=== PATIENT | male | born 2000 | race Caucasian/White ===

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

== ENCOUNTER 2021-09-20 15:33 | Emergency (ER) | payer OTHER, SELFPAY ==
[2021-09-20 15:36] VITALS: BP 153/79; PULSE 118; RESP 18; TEMP 37; O2SAT 97; BMI 40.1
--- NOTE | 2021-09-20 16:43 | ED_ITS ---
HPI - General Adult General Chief complaint: Skin/Abscess/Foreign Body Stated complaint: L Arm Side Pain No Injury Time Seen by Provider: 09/20/21 16:43 Source: patient and family (mother) Mode of arrival: ambulatory Limitations: no limitations History of Present Illness HPI narrative: Patient is a 20 year old male presenting to the emergency department today with a left armpit abscess. Patient states that for the last month and a half, he has had this growth in his left armpit. Patient states that the other day, the bump broke open. Patient denies any dizziness, lightheadedness, abdominal pain, n ausea, vomiting, fever, chills, blurry vision, double vision, loss of vision, chest pain, difficulty breathing, shortness of breath, back pain, night sweats, pain with urination, increased urinary frequency, increased urinary urgency, blood in his urine or stool, syncope or a near syncopal episode, recent trauma or falls, bowel incontinence, bladder incontinence, bowel retention, bladder retention, or any other complaints at this time. Onset (ago): month(s) (1) Location: left (armpit) Radiation: non-radiation Severity: mild Severity scale (1-10): 2 Quality: dull Pain Consistency: constant Relieving factors: none Exacerbating factors: none Associated symptoms: denies other symptoms Treatments prior to arrival: none Related Data Previous Rx's Medication Instructions Recorded cephalexin 500 mg capsule 500 mg PO Q6H 7 days #28 caps 09/20/21 Allergies Allergy/AdvReac Type Severity Reaction Status Date / Time morphine [MORPHINE] Allergy Intermediate RASH AND Unverified 12/27/19 17:22 ABD PAIN Review of Systems Constitutional: Constitutional: Reports no additional constitutional complaints, Denies chills, Denies fever(s) and Denies night sweats Eyes: Eyes: Reports no additional eye complaints, Denies blurry vision, Denies change in vision, Denies diplopia, Denies eye discharge, Denies loss of vision and Denies eye pain ENT: Denies dizziness Cardiovascular: Cardiovascular: Reports no additional cardiovascular complaints, Denies chest pain, Denies lightheadedness, Denies Loss of Consciousness and Denies dyspnea Respiratory: Respiratory: Reports no additional respiratory complaints and Denies dyspnea Gastrointestinal: Gastrointestinal: Reports no additional gastrointestinal complaints, Denies abdominal pain, Denies melena, Denies hematochezia, Denies change in bowel habits and Denies change in stool character Genitourinary: Genitourinary: Reports no additional male genitourinary complaints, Denies hematuria, Denies oliguria, Denies difficulty urinating, Denies dysuria, Denies urinary frequency, Denies urinary hesitancy, Denies urinary incontinence and Denies urinary urgency Musculoskeletal: Musculoskeletal: Reports no additional musculoskeletal c omplaints, Denies numbness and Denies tingling Integumentary/Breasts: Comments: left armpit abscess Neurologic: Denies dizziness, Denies loss of vision, Denies numbness and Denies tingling Psychiatric: Psychiatric: Reports no additional psychiatric complaints Endocrine: Endocrine: Reports no additional endocrine complaints Hematologic/Lymphatic: Hematologic/Lymphatic: Reports no additional hematologic/lymphatic complaints Allergic/Immunologic: Allergic/Immunologic: Reports no additional allergic/immunologic complaints [facility] Past Medical History Attestation statement: The following information was validated with the patient. Source: old records reviewed Social History Social History Advance Directives: No Advance Directives Information Provided: No Physical Exam ED Vital Signs: Vital Signs - 24 hr 09/20/21 15:36 Temperature 98.6 F Pulse Rate 118 H Respiratory Rate 18 Blood Pressure 153/79 H Pulse Oximetry 97 Oxygen Delivery Method Room Air BMI result Body Mass Index 40.1 Const General: cooperative, no acute distress, alert and awake Nutritional Appearance: well nourished Orientation/consciousness: patient oriented x3 Limitations: no limitations [facility] Head: Yes normal to inspection and Yes atraumatic Ears: hearing grossly normal bilaterally and external ears normal General nose exam: Normal external nose present, no nasal discharge noted and no epistaxis Face and sinus: Yes normal facial exam, No abrasion and No laceration Mouth: Normal oral and palatal mucosa present, no drooling and no muffled voice Eyes General: appearance normal, both eyes and all related structures Periorbital: periorbital findings normal Eyelids: Yes eyelids normal Conjunctivae: conjunctivae normal Pupils: Equal, round and reactive pupils present EOM: EOMs intact bilaterally Neck Neck: Yes normal visual inspection, Yes full ROM and Yes no lymphadenopathy Chest Chest palpation & inspection: normal inspection of the chest Resp Effort & Inspection: normal respiratory effort and able to speak in complete sentences Auscultation: clear to auscultation bilaterally Cardio Rate: regular rate Rhythm: regular rhythm GI Inspection: Yes normal to inspection Skin Other: abscess in the left axilla, draining Neuro General: patient oriented x3 and moves all extremities Cranial nerves: Yes Equal, round and reactive pupils present Cognition (Neuro): normal cognition Motor exam (neuro): 5/5 motor strength present throughout Sensory Exam: Normal double simultaneous stimulation for sensation Coordination: [id number] test normal Extrem General: Yes normal to inspection, Yes full ROM and Yes capillary refill normal Psych Appearance: grossly normal Mental Status: mental status grossly normal Affect: normal affect Attitude: cooperative Thought process: Normal thought process present Thought content: Normal thought content present Insight: Good insight present (Psych) Medical Decision Making MDM Narrative Medical decision making narrative: Patient is a 20 year old male presenting to the emergency department today with a left axillary abscess. Patient's physical exam showed a small abscess in the patient's left axilla that was already unroofed and actively draining. I explained my physical exam findings to the patient and the patient's mother. I answered all questions asked by the patient and the patient's mother. I stressed the importance of the patient taking his medication as prescribed. I stressed the importance of the patient following up with his primary care provider and a general surgeon. I stressed the importance of the patient returning to the emergency department immediately if his symptoms were to worsen or if he were to develop any dizziness, shortness of breath, difficulty breathing, chest pain, blurry vision, loss of vision, nausea, vomiting, abdominal pain, fever, chills, back pain, or any other complaints. Patient and the patient's mother verbalized agreement and understanding with this treatment plan and discharge. Differential Diagnosis Differential Diagnosis: abscess, cyst Medical Records Medical records reviewed: Yes I reviewed the patient's medical records. Discharge Plan Discharge Clinical Impression: Abscess of skin or subcutaneous tissue Patient Disposition: Home, Self-Care Instructions: Abscess (ED) Additional Instructions: Follow up with your primary care provider and a general surgeon. Return to the emergency department immediately if your symptoms worsen or if you develop any dizziness, shortness of breath, difficulty breathing, chest pain, blurry vision, loss of vision, nausea, vomiting, abdominal pain, fever, chills, back pain, or any other complaints. Prescriptions: New cephalexin 500 mg capsule 500 mg PO Q6H 7 Days Qty: 28 0RF Referrals: Ranjeet Ortega MD [Primary Care Provider] - Jarrett Cruz MD [Physician] - Print Language: Taiwanese
== END 2021-09-20 17:19 | disposition home or self-care (01) ==
PROVIDERS: Emergency Provider Emergency Medicine; PCP Pediatrics
DX: L02.412 Cutaneous abscess of left axilla (principal)
CPT/HCPCS: 99283

== ENCOUNTER → 2022-04-09 10:46 | Outpatient (BNVA) | payer OTHER, SELFPAY | PROVIDERS: PCP Pediatrics; Visit Provider Physician Assistant Surgical | DX: Z13.89 Encounter for screening for other disorder (principal) ==

== ENCOUNTER → 2022-04-19 08:33 | Outpatient (BNVA) | payer OTHER, SELFPAY | PROVIDERS: PCP Pediatrics; Visit Provider Surgery | DX: Z13.89 Encounter for screening for other disorder (principal) ==

== ENCOUNTER 2022-04-20 13:59 | Outpatient (REF) | payer OTHER, SELFPAY ==
--- NOTE | ~2022-04-20 | XR_ITS ---
EXAMINATION: XR CHEST CLINICAL INFORMATION: Bariatric service evaluation. E66.01 COMPARISON: Chest radiographs 02/09/2007, CT abdomen 03/15/2017 TECHNIQUE: 2 views of the chest were obtained. FINDINGS: Lungs clear. Vascularity normal. Costophrenic sulci are clear. Heart size normal. Hilar and mediastinal contours are unremarkable. Borderline levocurvature thoracolumbar spine. XR/XR chest 2V IMPRESSION: Lungs clear.
--- NOTE | 2022-04-20 14:09 | ECG_ITS ---
Test Reason : OBESITY Blood Pressure : / mmHG Vent. Rate : 080 BPM Atrial Rate : 080 BPM P-R Int : 096 ms QRS Dur : 086 ms QT Int : 364 ms P-R-T Axes : 058 008 -07 degrees QTc Int : 419 ms Sinus rhythm with short NE Minimal voltage criteria for LVH, may be normal variant ( R in aVL Borderline ECG When compared to the previous EKG of No significant changes seen Referred By: Kali Lemus Electronically Signed By:Checo Fall
[2022-04-20 14:15] LABS: MANUAL DIFF FLAG NO
[2022-04-20 15:14] LABS: Basophils Absolute Auto 0.1 X10*3/uL (0.0-0.2); Basophils Percent Auto 0.5 % (0-2); Eosinophils Absolute Auto 0.1 X10*3/uL (0.0-0.4); Hematocrit 44.5 % (42.0-52.0); Imm Gran Abs Auto 0.03 X10*3/uL (0.00-0.03); Imm Gran Pct Auto 0.3 % (0.0-0.4); Lymphocytes Absolute Auto 1.8 X10*3/uL (1.2-4.9); Lymphocytes Percent Auto 17.6 % (20-40); Mean Corpuscular HGB Conc 33.7 g/dl (31.0-36.0); Mean Corpuscular Hemoglobin 27.7 pg (27.0-33.0); Mean Corpuscular Volume 82.1 fL (80.0-98.0); Mean Platelet Volume 10.5 fL (9.4-12.4); Monocytes Absolute Auto 0.7 X10*3/uL (0.1-1.2); Monocytes Percent Auto 6.4 % (2-11); Neutrophils Absolute Auto 7.7 x10*3/uL (2.0-8.3); Neutrophils Percent Auto 74.2 % (45-73); Platelet Count 318 X10*3/uL (160-400); Red Blood Count 5.42 X10*6/uL (4.60-5.80); Red Cell Distribution Width 13.2 % (11.0-16.0); White Blood Count 10.3 X10*3/uL (4.8-10.8)
[2022-04-20 15:32] LABS: Estimated Average Glucose 105 mg/dL; Hemoglobin A1c % 5.3 %
[2022-04-20 16:26] LABS: Alanine Aminotransferase 22 U/L (0-40); Albumin Level 4.8 g/dL (3.5-5.0); Alkaline Phosphatase 97 U/L (39-117); Anion Gap 18 (12-20); Aspartate Amino Transferase 22 U/L (5-37); Bilirubin Total 0.9 mg/dL (0.0-1.0); Blood Urea Nitrogen 12 mg/dL (9-16); Calcium 10.1 mg/dL (8.4-10.2); Carbon Dioxide 23 mmol/L (22-29); Chloride 102 mmol/L (96-108); Cholesterol 127 mg/dL; Estimated Glomerular Filt Rate > 60; Glucose Random 73 mg/dL (60-115); HDL Cholesterol 19 mg/dL; Iron 98 mcg/dL (45-160); LDL Cholesterol Calculated 97 mg/dl; Percent Iron Saturation 28 % (15-50); Potassium 4.4 mmol/L (3.3-5.1); Sodium 139 mmol/L (135-145); Total Iron Binding Capacity 345 mcg/dL (228-428); Triglycerides 59 mg/dL; Unsaturated Iron Binding 247 ug/dL
[2022-04-20 16:49] LABS: Ferritin 201 ng/mL (20-250); Insulin 11 uU/mL (2-29); TSH reflex Free T4 0.58 uIU/mL (0.32-4.0); Vitamin D 25-OH Total 8.2 ng/mL (>30)
[2022-04-20 17:00] LABS: Folate 14.5 ng/mL (> or = 4.0); Vitamin B12 880 pg/mL (200-900)
[2022-04-21 10:48] LABS: Calcium (PTHI) 9.5 mg/dL (8.6-10.3); PTHI 28 pg/mL (16-77)
[2022-04-23 17:43] LABS: Zinc 91 mcg/dL (60-130)
[2022-04-25 16:13] LABS: Vitamin A 19 mcg/dL (38-98)
[2022-04-26 07:19] LABS: Vitamin B1 6 nmol/L (8-30)
== END 2022-04-20 14:00 | disposition home or self-care (01) ==
LOC: HO.XRAY 13:59
PROVIDERS: PCP Pediatrics; Visit Provider Surgery
DX: E66.01 Morbid (severe) obesity due to excess calories (principal)
CPT/HCPCS: 36415; 71046; 80053; 80061; 82306; 82607; 82728; 82746; 83036; 83525; 83540; 83970; 84425; 84443; 84590; 84630; 85025; 86140; 93005

== ENCOUNTER → 2022-04-29 14:31 | Outpatient (BNVA) | payer OTHER, SELFPAY | PROVIDERS: PCP Pediatrics; Visit Provider Physician Assistant Surgical | DX: Z13.89 Encounter for screening for other disorder (principal) ==

== ENCOUNTER 2022-04-29 15:34 | Outpatient (REF) | payer OTHER, SELFPAY ==
[2022-05-02 14:07] LABS: H Pylori Breath Test Negative (Negative)
== END 2022-04-29 15:35 | disposition home or self-care (01) ==
LOC: HO.LNP 15:34
PROVIDERS: Visit Provider Surgery
DX: E66.01 Morbid (severe) obesity due to excess calories (principal); Z11.0 Encounter for screening for intestinal infectious diseases
CPT/HCPCS: 83013

== ENCOUNTER → 2022-05-06 15:12 | Outpatient (BNVA) | payer OTHER, SELFPAY | PROVIDERS: PCP Pediatrics; Visit Provider Physician Assistant | DX: Z13.89 Encounter for screening for other disorder (principal) ==

== ENCOUNTER → 2022-05-14 14:01 | Outpatient (BNVA) | payer OTHER, SELFPAY | PROVIDERS: PCP Pediatrics; Visit Provider Physician Assistant Surgical | DX: Z13.89 Encounter for screening for other disorder (principal) ==

== ENCOUNTER → 2022-05-17 11:46 | Outpatient (BNVA) | payer OTHER, SELFPAY | PROVIDERS: PCP Pediatrics; Referring Provider Pediatrics; Visit Provider Surgery | DX: Z13.89 Encounter for screening for other disorder (principal) ==

== ENCOUNTER 2022-09-28 02:45 | Emergency (ER) | payer OTHER, SELFPAY ==
--- NOTE | 2022-09-28 | ECG_ITS ---
Test Reason : cp Blood Pressure : / mmHG Vent. Rate : 083 BPM Atrial Rate : 083 BPM P-R Int : 134 ms QRS Dur : 076 ms QT Int : 354 ms P-R-T Axes : 054 -03 -22 degrees QTc Int : 415 ms Normal sinus rhythm Minimal voltage criteria for LVH, may be normal variant ( R in aVL ) Borderline ECG When compared with ECG of 20-APR-2022 14:14, No significant change was found Referred By: Generic ED Physician Electronically Signed By:LAVONNE CURTIS
[2022-09-28 02:54] VITALS: BP 117/59; BP 138/88; PULSE 84; PULSE 90; RESP 20; TEMP 36.7; O2SAT 98; BMI 43.3
--- NOTE | 2022-09-28 03:29 | ED.EXTPRO ---
HPI - Extremity Problem General Chief complaint: Extremity Problem Stated complaint: left arm pain Time Seen by Provider: 09/28/22 03:28 Source: patient Mode of arrival: ambulatory Limitations: no limitations History of Present Illness HPI Narrative: Patient woke up from sleep with pain in the left arm increases on adduction no injury no fever no chills also has pain on the left side of the neck no midline tenderness patient otherwise healthy Related Data Home Medications Medication Instructions Recorded Confirmed multivitamin 1 tab PO DAILY 04/09/22 04/19/22 Previous Rx's Medication Instructions Recorded cholecalciferol (vitamin D3) 125 125 mcg PO DAILY #30 caps 05/15/22 mcg (5,000 unit) capsule thiamine HCl (vitamin B1) 100 mg 100 mg PO DAILY #30 tabs 05/15/22 tablet vitamin A palmitate 3,000 mcg 10,000 unit PO .COMPLEX #30 caps 05/15/22 (10,000 unit) capsule cyclobenzaprine 10 mg tablet 10 mg PO Q8H #20 tabs 09/28/22 ibuprofen 600 mg tablet 600 mg PO Q6H PRN fever or pain 09/28/22 #30 tabs Allergies Allergy/AdvReac Type Severity Reaction Status Date / Time morphine [MORPHINE] Allergy Intermediate RASH AND Verified 05/17/22 11:51 ABD PAIN Review of Systems Review of Systems: Yes all other systems are reviewed and are negative COUNTS INCLUDE 234 BEDS AT THE [facility] Past Medical History Medical History Morbid obesity Surgical History Hx laparoscopic cholecystectomy Family History Family History Mother Diabetes Hypertension Breast cancer Father Diabetes Hypertension Social History Social History Household Members: Family Housing: Apartment Alcohol intake: never Patient Tobacco Use Status: Never used Tobacco Advance Directives: No Advance Directives Information Provided: Yes Current occupational status: employed Current occupation: [employer] Physical Exam Vital Signs: Vital Signs: Last Vital Signs Temp 98.0 F 09/28/22 02:54 Pulse 84 09/28/22 02:54 Resp 20 09/28/22 02:54 BP 117/59 L 09/28/22 02:54 Pulse Ox 98 09/28/22 02:54 O2 Del Method Room Air 09/28/22 02:54 BMI result Body Mass Index 43.3 Const: General: cooperative, healthy appearing, comfortable and no acute distress Neck: Neck: Yes normal visual inspection, Yes full ROM, Yes no lymphadenopathy and Yes no meningeal signs Neck images: 1. Mild tenderness left trapezius muscle area Neuro: General: no meningeal signs Extrem: Shoulder/upper arm images: 1. Tenderness diffuse in the right shoulder joint good range of movement pain on adduction no limitation in abduction or internal rotation no motor weakness Medications Administered Discontinued Medications Generic Name Dose Route Start Last Admin Trade Name Freq PRN Reason Stop Dose Admin Cyclobenzaprine HCl 10 mg 09/28/22 03:43 09/28/22 03:52 Cyclobenzaprine Hcl 10 Mg Tablet PO 09/28/22 03:44 10 mg ONCE ONE Administration Ketorolac Tromethamine 60 mg 09/28/22 03:43 09/28/22 03:52 Ketorolac Tromethamine 60 Mg/2 Ml Vial IM 09/28/22 03:44 60 mg ONCE ONE Administration Medical Decision Making Medical Decision Making [facility] Narrative: Patient clinically with mild rotator cuff strain will discharge patient home on ibuprofen and Flexeril advised to follow with PCP if pain continues Independent Interpretation I performed an independent interpretation of an: EKG Interpretation: Normal sinus rhythm heart rate 83 beats per minute normal interval normal axis no acute ischemic changes Discharge Plan Discharge Clinical Impression: Strain of muscle(s) and tendon(s) of the rotator cuff of left shoulder, initial encounter Patient Disposition: Home, Self-Care Instructions: Rotator Cuff Injury (ED) Additional Instructions: Rest your left arm, apply ice you might have mild rotator cuff muscle strain Pain medication was relaxed and has advised follow with PCP if not better Prescriptions: New cyclobenzaprine 10 mg tablet 10 mg PO Q8H Qty: 20 0RF ibuprofen 600 mg tablet 600 mg PO Q6H PRN (Reason: fever or pain) Qty: 30 0RF No Action thiamine HCl (vitamin B1) 100 mg tablet 100 mg PO DAILY Qty: 30 2RF cholecalciferol (vitamin D3) 125 mcg (5,000 unit) capsule 125 mcg PO DAILY Qty: 30 2RF vitamin A palmitate 10,000 unit capsule 10,000 unit PO .COMPLEX Qty: 30 2RF Rx Instructions: 10,000 units orally one per day; multivitamin Tablet 1 tab PO DAILY
[2022-09-28] MEDS: Ketorolac Tromethamine 60 MG/2 ML VIAL IM (03:52)
[2022-09-28] MEDS: Cyclobenzaprine HCl 10 MG TABLET PO (03:52)
== END 2022-09-28 04:06 | disposition home or self-care (01) ==
PROVIDERS: Emergency Provider Internal Medicine; PCP Pediatrics
DX: R07.89 Other chest pain (principal); M79.602 Pain in left arm; M75.102 Unspecified rotator cuff tear or rupture of left shoulder, not specified as traumatic; Z79.899 Other long term (current) drug therapy
CPT/HCPCS: 93005; 96372; 99284; J1885

== ENCOUNTER 2024-06-22 17:26 | Emergency (ER) | payer OTHER, SELFPAY ==
[2024-06-22 17:38] VITALS: BP 152/106; PULSE 116; RESP 16; TEMP 36.8; O2SAT 96; BMI 47.9
--- NOTE | 2024-06-22 17:38 | ED_ITS ---
HPI - General Adult General Chief complaint: Ear Problems Stated complaint: something in Right ear & leaking Time Seen by Provider: 06/22/24 17:42 Source: patient, RN notes reviewed and old records reviewed Mode of arrival: ambulatory Limitations: no limitations History of Present Illness ED Provider: Sid HPI narrative: Patient is a 23-year-old male presenting to the emergency department with complaint of intermittent right ear pain for the past 3 days. Reports recent cold few days prior to that. Has noticed some discharge, unsure what color. Denies fevers. Denies cough, sore throat, chest pain. complaint: ear pain Onset (ago): day(s) Related Data Home Medications ?Medication ?Instructions ?Recorded ?Confirmed multivitamin 1 tab PO DAILY 04/09/22 04/19/22 Previous Rx's ?Medication ?Instructions ?Recorded cholecalciferol (vitamin D3) 125 125 mcg PO DAILY #30 caps 05/15/22 mcg (5,000 unit) capsule thiamine HCl (vitamin B1) 100 mg 100 mg PO DAILY #30 tabs 05/15/22 tablet vitamin A palmitate 3,000 mcg 10,000 unit PO .COMPLEX #30 caps 05/15/22 (10,000 unit) capsule cyclobenzaprine 10 mg tablet 10 mg PO Q8H #20 tabs 09/28/22 ibuprofen 600 mg tablet 600 mg PO Q6H PRN fever or pain 09/28/22 #30 tabs ofloxacin 0.3 % ear drops 10 drp otic (ears) DAILY 7 days 06/22/24 #10 mL Allergies Allergy/AdvReac Type Severity Reaction Status Date / Time morphine [MORPHINE] Allergy Intermediate RASH AND Verified 06/22/24 17:40 ABD PAIN Review of Systems Review of Systems: As per HPI Yes all other systems are reviewed and are negative Constitutional: Constitutional: Reports as per HPI PMFSH Past Medical History Medical History Morbid obesity Surgical History Hx laparoscopic cholecystectomy Family History Family History Mother Diabetes Hypertension Breast cancer Father Diabetes Hypertension Social History Social History Household Members: Family Housing: Apartment Alcohol intake: never Patient Tobacco Use Status: Never used Tobacco Advance Directives: No Advance Directives Information Provided: No Do you have a plan to hurt others: No Plan Current occupational status: employed Current occupation: [employer] Physical Exam ED Vital Signs: Vital Signs - 24 hr 06/22/24 17:38 06/22/24 17:45 Temperature 98.2 F Pulse Rate 116 H 103 H Respiratory Rate 16 Blood Pressure 152/106 H Pulse Oximetry 96 Oxygen Delivery Method Room Air BMI result Body Mass Index 47.9 Vital signs have been reviewed and appear to be correct. Blood pressure elevated. Heart rate mildly tachycardic. Respiratory rate normal. Temperature normal. Oxygen saturation normal. Const General: cooperative, healthy appearing and no acute distress Orientation/consciousness: oriented to person, oriented to place, oriented to time and patient oriented x3 Limitations: no limitations [facility] Head: Yes normocephalic and Yes atraumatic Ears: external ears normal, TM's normal bilaterally, mastoids normal bilaterally , no periauricular adenopathy and Abnormal EAC present excessive cerumen on the left, erythema on the right and otic discharge purulent on the right General nose exam: Normal external nose present Face and sinus: Yes face symmetric Mouth: oropharynx normal and moist mucous membranes Throat: Yes uvula midline Eyes Pupils: Equal, round and reactive pupils present Neck Neck: Yes normal visual inspection and Yes supple Resp Effort & Inspection: normal respiratory effort and able to speak in complete sentences Auscultation: clear to auscultation bilaterally Cardio Rate: regular rate Rhythm: regular rhythm Heart sounds: S1 normal heart sound present and S2 normal heart sound present GI Palpation (GI): Soft to palpation and nontender Auscultation: normoactive bowel sounds General: Yes no CVA tenderness Back/Spine/Pelvis Back: no CVA tenderness Skin General skin exam: elasticity normal and turgor normal Neuro General: oriented to person, oriented to place, oriented to time, patient oriented x3, moves all extremities, no focal motor deficits and CN's II-XI intact bilaterally Cranial nerves: Yes Equal, round and reactive pupils present Cognition (Neuro): normal cognition Extrem General: Yes full ROM, Yes no pedal edema and Yes no calf tenderness Psych Mental Status: mental status grossly normal Affect: normal affect Thought process: Normal thought process present Medical Decision Making Medical Decision Making [facility] Narrative: Patient is a 23-year-old male presenting to the emergency department with complaint of intermittent right ear pain for the past 3 days. On exam patient is awake, A+Ox3, VS WNL, afebrile, normal neurological exam without focal deficits, physical exam findings as above. Given reported symptoms and physical exam findings, initial differential includes but is not limited to otitis media, otitis externa, cerumen impaction. Do not suspect mastoiditis. Physical exam findings consistent with otitis externa of right ear. Will treat with ofloxacin drops. Patient also noted to be hypertensive, discussed with patient that he should follow up with PCP for repeat blood pressure check. Return precautions discussed. Patient verbalized understanding of and agreement with plan. Differential Diagnosis Differential Diagnoses: The differential diagnosis associated with the presentation includes As per [facility] External Record Review External record reviewed: Inpatient record, Office record and Outpatient record Prescription Management I considered prescription management with: Antibiotic Discharge Plan Discharge Clinical Impression: Otitis externa, Elevated blood pressure reading Patient Disposition: Home, Self-Care Instructions: Otitis Externa (DC) Additional Instructions: You were evaluated in the emergency department today for ear pain. Your evaluation suggests that your pain is due to an ear infection. Please take your prescribed antibiotic DROPS as directed for the full course of the medication. You can apply warm compresses to the area for 10-15 minutes at a time several times daily. We recommend that you take 650 mg of Tylenol or 600 mg of ibuprofen every 6 hours as needed. If necessary, you can alternate these medications every 3 hours. For example, at 9:00 a.m. take Tylenol, then at noon take ibuprofen, then at 3:00 p.m. take Tylenol, etc.. Your blood pressure was elevated today, follow up with your PCP for a recheck within the next 1-2 weeks. Please follow up with your primary care provider within two days. Return to the emergency department if you experience hearing loss, discharge from your ear, headaches, fevers, recurrent vomiting, or any other concerning symptoms. Prescriptions: New ofloxacin 0.3 % drops 10 drp otic (ears) DAILY 7 Days Qty: 10 0RF No Action thiamine HCl (vitamin B1) 100 mg tablet 100 mg PO DAILY Qty: 30 2RF cholecalciferol (vitamin D3) 125 mcg (5,000 unit) capsule 125 mcg PO DAILY Qty: 30 2RF vitamin A palmitate 10,000 unit capsule 10,000 unit PO .COMPLEX Qty: 30 2RF Rx Instructions: 10,000 units orally one per day; cyclobenzaprine 10 mg tablet 10 mg PO Q8H Qty: 20 0RF ibuprofen 600 mg tablet 600 mg PO Q6H PRN (Reason: fever or pain) Qty: 30 0RF multivitamin Tablet 1 tab PO DAILY Referrals: [facility] [place] Family Medicine [Provider Group] [facility] [place] Primary Care, Alexa [Provider Group] [facility] [place] Primary Care,Jade [Provider Group] [facility] [place] Walk In Care [Provider Group] Print Language: [place]
[2024-06-22 17:45] VITALS: PULSE 103
[2024-06-22 17:59] VITALS: BP 159/102; PULSE 103; RESP 16; TEMP 36.8; O2SAT 98
== END 2024-06-22 18:00 | disposition home or self-care (01) ==
PROVIDERS: Emergency Provider Emergency Medicine
DX: H60.91 Unspecified otitis externa, right ear (principal); H92.01 Otalgia, right ear; R03.0 Elevated blood-pressure reading, without diagnosis of hypertension; Z79.899 Other long term (current) drug therapy
CPT/HCPCS: 99282; 99283

== ENCOUNTER 2024-06-25 22:15 | Emergency (ER) | payer OTHER, SELFPAY ==
[2024-06-25 22:39] VITALS: BP 148/88; PULSE 106; RESP 16; TEMP 36.9; O2SAT 96; BMI 47.7
--- NOTE | 2024-06-26 01:28 | ED.GENADULT ---
HPI - General Adult General Chief complaint: Ear Problems Stated complaint: Something lodged in right ear Time Seen by Provider: 06/26/24 01:28 History of Present Illness ED Provider: Jules BOLTON narrative: The patient is a 23-year-old male who has been having discomfort in his right ear. The patient was here 3 days ago on June 22. He was thought to possibly have an otitis externa and was started on ofloxacin drops. The patient has not feel these drops of helped him very much. He says that he took a picture of his ear and he thinks that there is a hair in his ear which is irritating his ear. No fevers, sweats, chills. Related Data Home Medications ?Medication ?Instructions ?Recorded ?Confirmed multivitamin 1 tab PO DAILY 04/09/22 04/19/22 Previous Rx's ?Medication ?Instructions ?Recorded cholecalciferol (vitamin D3) 125 125 mcg PO DAILY #30 caps 05/15/22 mcg (5,000 unit) capsule thiamine HCl (vitamin B1) 100 mg 100 mg PO DAILY #30 tabs 05/15/22 tablet vitamin A palmitate 3,000 mcg 10,000 unit PO .COMPLEX #30 caps 05/15/22 (10,000 unit) capsule cyclobenzaprine 10 mg tablet 10 mg PO Q8H #20 tabs 09/28/22 ibuprofen 600 mg tablet 600 mg PO Q6H PRN fever or pain 09/28/22 #30 tabs ofloxacin 0.3 % ear drops 10 drp otic (ears) DAILY 7 days 06/22/24 #10 mL Allergies Allergy/AdvReac Type Severity Reaction Status Date / Time morphine [MORPHINE] Allergy Intermediate RASH AND Verified 06/25/24 22:44 ABD PAIN Review of Systems Review of Systems: Yes all other systems are reviewed and are negative PMF Past Medical History Medical History Morbid obesity Surgical History Hx laparoscopic cholecystectomy Family History Family History Mother Diabetes Hypertension Breast cancer Father Diabetes Hypertension Social History Social History Household Members: Family Housing: Apartment Alcohol intake: never Patient Tobacco Use Status: Never used Tobacco Smoked in Last 30 Days: No Use of substances other than those prescribed or required for medical reasons: No Advance Directives: No Advance Directives Information Provided: Yes Do you have a plan to hurt others: No Plan Current occupational status: employed Current occupation: [employer] Physical Exam ED Vital Signs: Vital Signs - 24 hr 06/25/24 22:39 Temperature 98.4 F Pulse Rate 106 H Respiratory Rate 16 Blood Pressure 148/88 H Pulse Oximetry 96 Oxygen Delivery Method Room Air BMI result Body Mass Index 47.7 Const Other: The patient is awake, alert, pleasant, cooperative. He has not seem in acute distress or toxic. HENMT Other: Face is symmetrical. The posterior pharynx is normal. The left tympanic membrane is normal and the ear canal is normal. The right tympanic membrane had a fair amount of debris in the ear canal which was mostly cerumen but there were some small hairs in the ear canal. There was no pus in the canal. There was no narrowing of the canal. After the debris in the ear canal was removed the tympanic membrane could be visualized and appeared normal. Eyes General: appearance normal, both eyes and all related structures Neck Neck: Yes normal visual inspection, Yes full ROM and Yes no lymphadenopathy Resp Effort & Inspection: normal respiratory effort Auscultation: clear to auscultation bilaterally Cardio Rate: regular rate Rhythm: regular rhythm Heart sounds: S1 normal heart sound present and S2 normal heart sound present Skin Other: Skin is dry and unremarkable Neuro Other: The patient is awake and alert with a normal mental status. Cranial nerves 2-12 are intact. Moves his extremities normally. He has a normal gait. Extrem General: Yes normal to inspection Medical Decision Making Medical Decision Making MDM Narrative: The patient is a 23-year-old male who returns to the emergency room with a ongoing right ear discomfort. He has been on ofloxacin drops. In my exam the patient has some cerumen and a few loose hairs in the right ear canal but I do not see any sign of infection. I used a curette to remove the wax and alligator forceps to remove some small hairs. After this maneuver the ear canal was clear and I was able to see the tympanic membrane which I thought looked normal. I did not appreciate any purulence in the ear canal. I do not appreciate any narrowing or edema of the ear canal. No erythema. I do not have a very high suspicion that there is a significant otitis externa. I think the patient may continue to use the ofloxacin drops for a few days but he was feeling considerably better after removal of the debris in his ear. Perhaps one of the hairs was irritating the ear canal. He was feeling significantly better and was happy to be discharged. Discharge Plan Discharge Clinical Impression: Acute pain of right ear Patient Disposition: Home, Self-Care Additional Instructions: It is possible the discomfort in your right ear was coming from a hair or hairs that had fallen into your ear. I would recommend keeping the hair on the outside of your head near the ears trimmed. I think the hairs that were inside your ear had fallen into your ear canal from the outside. I think if you keep your hair around the ears trimmed this is less likely to happen again. Please continue to use the antibiotic ear drops you were previously prescribed. Please work on trying to get a primary care doctor. You were currently on the waiting list at the [facility]. I have also given you the contact information for a [facility] primary care office in [place]. Return to the emergency room if significantly worse. Prescriptions: No Action thiamine HCl (vitamin B1) 100 mg tablet 100 mg PO DAILY Qty: 30 2RF cholecalciferol (vitamin D3) 125 mcg (5,000 unit) capsule 125 mcg PO DAILY Qty: 30 2RF vitamin A palmitate 10,000 unit capsule 10,000 unit PO .COMPLEX Qty: 30 2RF Rx Instructions: 10,000 units orally one per day; cyclobenzaprine 10 mg tablet 10 mg PO Q8H Qty: 20 0RF ibuprofen 600 mg tablet 600 mg PO Q6H PRN (Reason: fever or pain) Qty: 30 0RF ofloxacin 0.3 % drops 10 drp otic (ears) DAILY 7 Days Qty: 10 0RF multivitamin Tablet 1 tab PO DAILY Referrals: [facility] [Provider Group] (Needs PCP) [facility] [Provider Group] (Needs PCP) Print Language: Polish
[2024-06-26 01:45] VITALS: BP 135/78; PULSE 90; RESP 18; TEMP 36.4; O2SAT 99
[2024-06-26 01:49] VITALS: BP 135/78; PULSE 90; RESP 18; TEMP 36.4; O2SAT 99
== END 2024-06-26 01:50 | disposition home or self-care (01) ==
PROVIDERS: Emergency Provider Emergency Medicine
DX: H92.01 Otalgia, right ear (principal)
CPT/HCPCS: 99282; 99284